=== PATIENT | male | born 1965 | race Caucasian/White ===

== ENCOUNTER 2017-02-24 15:16 | Emergency (ER) | payer OTHER ==
[2017-02-24] MEDS ORDERED: NACL 0.9% 1000 ML 1,000 ML IV ONE (15:36)
[2017-02-24 16:23] LABS: Basophils % (Auto) 0.7 % (0.0-1.8); Eosinophils % (Auto) 2.4 % (0.0-4.3); Hematocrit 43.7 % (35.5-45.6); Hemoglobin 15.1 gm/dl (11.8-15.2); Mean Corpuscular HGB Conc 35 % (32-34); Mean Corpuscular Hemoglobin 31 pg (28-32); Mean Corpuscular Volume 89 fl (84-94); Platelet Count 217 K/mm3 (140-440)
[2017-02-24 16:32] LABS: INR 0.93 (0.87-1.13); Partial Thromboplastin Time 28.1 Sec. (24.2-36.6)
[2017-02-24 16:45] LABS: Alanine Aminotransferase 15 units/L (7-56); Albumin 4.1 g/dL (3.9-5); Albumin/Globulin Ratio 1.3 %; Alkaline Phosphatase 78 units/L (35-129); Anion Gap 17 mmol/L; BUN/Creatinine Ratio 27; Blood Urea Nitrogen 16 mg/dL (9-20); Calcium 9.2 mg/dL (8.4-10.2); Carbon Dioxide 26 mmol/L (22-30); Chloride 100.8 mmol/L (98-107); Glucose 172 mg/dL (75-100); Lipase 45 units/L (13-60); Potassium 4.6 mmol/L (3.6-5.0); Sodium 139 mmol/L (137-145); Total Protein 7.2 g/dL (6.3-8.2)
[2017-02-25 00:01] VITALS: BP 134/85
--- NOTE | 2017-02-25 00:46 | Emergency Department Report ---
ED GI Bleed [facility] - General Chief complaint: GI Bleed Stated complaint: BLOOD IN URINE Time Seen by Provider: 02/24/17 23:40 Source: patient, RN notes reviewed Mode of arrival: Ambulatory Limitations: No Limitations - History of Present Illness Initial comments: This is a 51-year-old male who denies chronic medical conditions presented to the ER with a few days, we can a half of brown stool mixed with red blood. It is painless. It is constant. It does not radiate anywhere. It has no exacerbating or relieving factors. Patient denies headache, neck pain, chest pain, abdominal pain, short of breath, nausea, vomiting, diarrhea, hematemesis. He reports not taking any blood thinning medications. MD complaint: blood streaked stool -: Gradual, days(s) Radiation: none Quality: painless Consistency: constant Improves with: none Worsens with: none Associated Symptoms: denies: abdominal pain, nausea, vomiting, epistaxis, fever/ chills, headaches, loss of appetite, malaise, rash, other bleeding, shortness of breath, syncope, weakness - Related Data Allergies Allergy/AdvReac Type Severity Reaction Status Date / Time No Known Allergies Allergy Unverified 02/24/17 15:32 ED Review of Systems ROS: Stated complaint: BLOOD IN URINE Other details as noted in HPI ED Past Medical Hx - Past Medical History Previous Medical History?: No - Surgical History Past Surgical History?: No - Social History Smoking Status: Never Smoker Substance Use Type: None ED Physical Exam - General Limitations: No Limitations General appearance: alert, in no apparent distress - Head Head exam: Present: atraumatic, normocephalic - Eye Eye exam: Present: normal appearance, EOMI. Absent: nystagmus - ENT ENT exam: Present: normal exam, normal orophraynx, mucous membranes moist, normal external ear exam - Neck Neck exam: Present: normal inspection, full ROM - Respiratory Respiratory exam: Present: normal lung sounds bilaterally. Absent: respiratory distress, chest wall tenderness - Cardiovascular Cardiovascular Exam: Present: regular rate, normal rhythm, normal heart sounds. Absent: systolic murmur, diastolic murmur, rubs, gallop - GI/Abdominal GI/Abdominal exam: Present: soft, normal bowel sounds. Absent: distended, tenderness, guarding, rebound, rigid, pulsatile mass - Rectal Rectal exam: Present: normal inspection, heme (-) stool - Extremities Exam Extremities exam: Present: normal inspection, full ROM, normal capillary refill. Absent: pedal edema, joint swelling, calf tenderness - Back Exam Back exam: Present: normal inspection, full ROM. Absent: tenderness, CVA tenderness (R), paraspinal tenderness, vertebral tenderness - Neurological Exam Neurological exam: Present: alert, oriented X3, CN II-XII intact, normal gait, other (Extraocular movements intact. Tongue midline. No facial droop. Facial sensation intact to light touch in the V1, V2, V3 distribution bilaterally. 5 and 5 strength in 4 extremities.. Sensation is intact to light touch in 4 extremities.). Absent: motor sensory deficit - Psychiatric Psychiatric exam: Present: normal affect, normal mood - Skin Skin exam: Present: warm, dry, intact, normal color. Absent: rash ED Course Vital Signs 02/24/17 02/24/17 15:32 23:59 Temperature 98.7 F Pulse Rate 76 74 Respiratory 18 16 Rate Blood Pressure 139/81 Blood Pressure 134/85 [Left] O2 Sat by Pulse 94 87 Oximetry ED Medical Decision Making - Lab Data Result diagrams: 02/24/17 16:04 02/24/17 16:10 Vital Signs 02/24/17 02/24/17 15:32 23:59 Temperature 98.7 F Pulse Rate 76 74 Respiratory 18 16 Rate Blood Pressure 139/81 Blood Pressure 134/85 [Left] O2 Sat by Pulse 94 87 Oximetry Lab Results 02/24/17 02/24/17 02/24/17 Range/Units 16:04 16:04 16:09 WBC 7.0 (4.5-11.0) K/mm3 RBC 4.90 (3.65-5.03) M/mm3 Hgb 15.1 (11.8-15.2) gm/dl Hct 43.7 (35.5-45.6) % MCV 89 (84-94) fl MCH 31 (28-32) pg MCHC 35 H (32-34) % RDW 13.0 L (13.2-15.2) % Plt Count 217 (140-440) K/mm3 Lymph % (Auto) 27.7 (13.4-35.0) % Iron % (Auto) 10.9 H (0.0-7.3) % Eos % (Auto) 2.4 (0.0-4.3) % Baso % (Auto) 0.7 (0.0-1.8) % Lymph # 1.9 (1.2-5.4) K/mm3 Iron # 0.8 (0.0-0.8) K/mm3 Eos # 0.2 (0.0-0.4) K/mm3 Baso # 0.0 (0.0-0.1) K/mm3 Seg Neutrophils % 58.3 (40.0-70.0) % Seg Neutrophils # 4.1 (1.8-7.7) K/mm3 PT 12.9 (12.2-14.9) Sec. INR 0.93 (0.87-1.13) APTT 28.1 (24.2-36.6) Sec. Sodium (137-145) mmol/L Potassium (3.6-5.0) mmol/L Chloride (98-107) mmol/L Carbon Dioxide (22-30) mmol/L Anion Gap mmol/L BUN (9-20) mg/dL Creatinine (0.8-1.5) mg/dL Estimated GFR ml/min BUN/Creatinine Ratio % Glucose (75-100) mg/dL Calcium (8.4-10.2) mg/dL Total Bilirubin (0.1-1.2) mg/dL AST (5-40) units/L ALT (7-56) units/L Alkaline Phosphatase (35-129) units/L Total Protein (6.3-8.2) g/dL Albumin (3.9-5) g/dL Albumin/Globulin Ratio % Lipase (13-60) units/L Blood Type A POSITIVE Antibody Screen Negative 02/24/17 Range/Units 16:10 WBC (4.5-11.0) K/mm3 RBC (3.65-5.03) M/mm3 Hgb (11.8-15.2) gm/dl Hct (35.5-45.6) % MCV (84-94) fl MCH (28-32) pg MCHC (32-34) % RDW (13.2-15.2) % Plt Count (140-440) K/mm3 Lymph % (Auto) (13.4-35.0) % Iron % (Auto) (0.0-7.3) % Eos % (Auto) (0.0-4.3) % Baso % (Auto) (0.0-1.8) % Lymph # (1.2-5.4) K/mm3 Iron # (0.0-0.8) K/mm3 Eos # (0.0-0.4) K/mm3 Baso # (0.0-0.1) K/mm3 Seg Neutrophils % (40.0-70.0) % Seg Neutrophils # (1.8-7.7) K/mm3 PT (12.2-14.9) Sec. INR (0.87-1.13) APTT (24.2-36.6) Sec. Sodium 139 (137-145) mmol/L Potassium 4.6 (3.6-5.0) mmol/L Chloride 100.8 (98-107) mmol/L Carbon Dioxide 26 (22-30) mmol/L Anion Gap 17 mmol/L BUN 16 (9-20) mg/dL Creatinine 0.6 L (0.8-1.5) mg/dL Estimated GFR > 60 ml/min BUN/Creatinine Ratio 27 % Glucose 172 H (75-100) mg/dL Calcium 9.2 (8.4-10.2) mg/dL Total Bilirubin 0.70 (0.1-1.2) mg/dL AST 17 (5-40) units/L ALT 15 (7-56) units/L Alkaline Phosphatase 78 (35-129) units/L Total Protein 7.2 (6.3-8.2) g/dL Albumin 4.1 (3.9-5) g/dL Albumin/Globulin Ratio 1.3 % Lipase 45 (13-60) units/L Blood Type Antibody Screen - Medical Decision Making Differential diagnosis, including but not limited to: Malignancy, diverticulosis , angiodysplasia, upper GI bleed Assessment and plan: 51-year-old male with a complaint of rectal bleeding. He is afebrile with reassuring vital signs. He has no blood on rectal examination. He is guaiac negative. Hemoglobin and hematocrit appropriate, patient's blood pressure is appropriate as well. He reports not having had a colonoscopy. Patient is to follow-up with outpatient gastroenterology for colonoscopy. Patient is suitable to be discharged at this time, and he is suitable for outpatient management. Critical care attestation.: If time is entered above; I have spent that time in minutes in the direct care of this critically ill patient, excluding procedure time. ED Disposition Clinical Impression: History of rectal bleeding Disposition: TO HOME OR SELFCARE Is pt being admited?: No Does the pt Need Aspirin: No Condition: Good Instructions: Gastrointestinal Bleeding (ED) Additional Instructions: Follow-up with the gastroenterology specialist within the next 3-4 weeks for outpatient evaluation for colonoscopy. Not following up as recommended may resultant undiagnosed tumor, cancer, malignancy. Contact [facility], a local gastroenterology practice to arrange outpatient follow -up. Avoid consumption of aspirin, Motrin, ibuprofen, Aleve, Naprosyn. Return to the ER right away with new pain, worsened pain, migration of pain, fevers, chills, lethargy, irritability, projectile vomiting, change in mental status, confusion, vomiting blood, defecating blood. Oscar un seguimiento con el especialista en gastroenterologa dentro de las pr ximas 3-4 semanas para andrea evaluacin ambulatoria de colonoscopia. Si no se realiza el seguimiento recomendado, se pueden producir tumores no diagnosticados , cncer o tumores malignos. Pngase en contacto con la gastroenterologa de [place], andrea prctica local de gastroenterologa para coordinar el seguimiento de pacientes ambulatorios. Evite el consumo de aspirina, Motrin, ibuprofeno, Aleve, Naprosyn. Regrese a la sarina de emergencias con dolor nuevo, dolor empeorado, migracin de dolor, fiebre, escalofros, letargo, irritabilidad, v mitos de proyectil, cambios en el estado mental, confusin, vmitos de biajl, defecacin de bijal. Referrals: PRIMARY CARE, [Primary Care Provider] - 3-5 Days [facility] [Provider Group] - 3-5 Days
== END 2017-02-25 01:18 | disposition home or self-care (01) ==
LOC: ED 15:16
DX: K92.1 Melena (principal); K62.5 Hemorrhage of anus and rectum
CPT/HCPCS: 36415; 80053; 83690; 85025; 85610; 85730; 86850; 86900; 86901; 93005; 93010